=== PATIENT | female | born 1935 | race African-American/Black ===

== ENCOUNTER 2022-03-04 11:18 | Inpatient (IN) | payer OTHER ==
[~2022-03-04] VITALS: Ht 160 cm; Wt 61.2 kg
--- NOTE | 2022-03-04 11:27 | NUR ---
TO ER BED 11, BIBDAUGHTER C/O INCREASED CONFUSION HX OF DEMENTIA, " I FEEL AWFUL", AAOX3, BREATHING EVEN AND NON LABORED, CHANGED INTO A GOWN, CONNECTED TO MONITOR, DAUGHTER AT BEDSIDE
--- NOTE | 2022-03-04 11:47 | NUR ---
COVID SWAB DONE AND SENT TO LAB
--- NOTE | 2022-03-04 11:50 | NUR ---
RECIVED PT 86 YRS FEMALE ACCOMPANY BY RAAD FOR genralized weekness and and more confused and elopment and walking out
--- NOTE | 2022-03-04 11:57 | NUR ---
SEEN BY DR. ESTRADA PT UNABLE TO VODE AT THIS TIME
--- NOTE | 2022-03-04 12:10 | NUR ---
MOVE SHEET SUBMITTED.
[2022-03-04 12:21] LABS: BASOPHILS % (AUTO) 0.4 % (0.0-2.0); HEMATOCRIT 40 % (33-45); LYMPHOCYTES # (AUTO) 2.8 K/uL (0.8-4.8); LYMPHOCYTES % (AUTO) 33.3 % (20.0-44.0); MEAN CORPUSCULAR HGB CONC 33 g/dl (31.0-36.0); MEAN CORPUSCULAR VOLUME 93 fL (82-100); MONOCYTES # (AUTO) 0.7 K/uL (0.1-1.30); NEUTROPHILS # (AUTO) 4.8 K/uL (1.8-8.9); NEUTROPHILS % (AUTO) 57.3 % (43.0-81.0); PLATELET COUNT (AUTO) 227 K/uL (150-450); RED BLOOD CELL COUNT(AUTO) 4.25 MIL/uL (4.0-5.2); WHITE BLOOD COUNT (AUTO) 8.4 K/uL (4.3-11.0)
--- NOTE | 2022-03-04 12:34 | NUR ---
STILL UNABLE TO PROVIDE URINE AT THIS TIME, MD AWARE, CUP OF WATER GIVEN PER MD
[2022-03-04 13:03] LABS: CALCIUM, SERUM 8.8 mg/dL (8.5-10.1); CARBON DIOXIDE 27 mmol/L (21-32); CHLORIDE 104 mmol/L (98-107); GLUCOSE 81 mg/dL (74-106); POTASSIUM 3.9 mmol/L (3.5-5.1); SODIUM SERUM 140 mmol/L (136-145); UREA NITROGEN, BLOOD 12 mg/dL (7-18)
--- NOTE | 2022-03-04 13:11 | NUR ---
RESTING AND COMFORTABLE AT THIS TIME NO PAIN NOTED
[2022-03-04 13:14] LABS: ALANINE AMINOTRANSFERASE 14 U/L (12-78); ALBUMIN 3.7 g/dL (3.4-5.0); ALCOHOL, BLOOD < 3 mg/dL (0-0); ALKALINE PHOSPHATASE 114 U/L (46-116); ASPARTATE AMINOTRANSFERASE 32 U/L (15-37); BILIRUBIN,DIRECT 0.1 mg/dL (0.0-0.2); BILIRUBIN,TOTAL 0.4 mg/dL (0.2-1.0); TOTAL PROTEIN, SERUM 7.9 g/dL (6.4-8.2)
--- NOTE | 2022-03-04 13:19 | NUR ---
CRITICAL LAB TROP 196
[2022-03-04 13:53] LABS: THYROID STIMULATING HORMONE 2.166 uIU/mL (0.358-3.74)
--- NOTE | 2022-03-04 14:30 | NUR ---
resting and asleepy at this time no sob looks comfortable doughter at bed side
[2022-03-04] MEDS ORDERED: ACETAMINOPHEN 325 MG TABLET PO PRN (15:00)
[2022-03-04] MEDS ORDERED: Z GUARD REMEDY 4 OZ OINT TP PRN (15:00)
[2022-03-04] MEDS ORDERED: ASPIRIN 81 MG TAB.CHEW PO ONE (15:00)
[2022-03-04] MEDS ORDERED: MAG HYDROX/AL HYDROX/SIMETH 30 ML UDC PO PRN (15:00)
[2022-03-04] MEDS ORDERED: LORAZEPAM 1 MG TABLET PO PRN (15:00)
[2022-03-04] MEDS ORDERED: ONDANSETRON HCL/PF 4 MG/2 ML VIAL IVP PRN (15:00)
--- NOTE | 2022-03-04 15:04 | NUR ---
GOT BED 311-1 ROSEANNE
[2022-03-04 15:05] LABS: SERUM AMMONIA 15 umol/L (11-32)
[2022-03-04] MEDS ORDERED: ASPIRIN 81 MG TAB.CHEW ONE (15:30)
--- NOTE | 2022-03-04 15:30 | NUR ---
[facility] SWABE PT DONE
--- NOTE | 2022-03-04 15:52 | NUR ---
HAND OFF TO ROSEANNE POLANCO TO ROOM 311-1 STABLE VS AND CONDITION AWAKE AND ALERT
--- NOTE | 2022-03-04 16:10 | NUR ---
CYLINDRICAL MIXER ADMITTING NOTES RECEIVED ADMISSION FROM EMERGENCY ROOM. PATIENT A/O X1, CONFUSED. VS WNL. NO COMPLAINS OF PAIN. CURRENTLY ON ROOM AIR SATURATING WELL; NO SOB OF DIFFICULTY BREATHING. SAFETY PRECAUTIONS IN PLACE; BED IN LOW POSITION AND LOCKED, RAILS UP X2, CALL LIGHT WITHIN REACH. WILL CONTINUE TO MONITOR PATIENT.
[2022-03-04 16:24] LABS: BILIRUBIN,URINE NEGATIVE (NEGATIVE); COLOR,URINE YELLOW (YELLOW); LEUKOCYTE ESTERASE ,URINE NEGATIVE (NEGATIVE); NITRITE, URINE NEGATIVE (NEGATIVE); PROTEIN,URINE NEGATIVE (NEGATIVE); UGLUCOSE NEGATIVE (NEGATIVE); UROBILINOGEN,URINE 0.2 EU/dL (0.2)
--- NOTE | 2022-03-04 18:54 | NUR ---
SVP DIGITAL AD SALES CLOSING NOTES PATIENT IN BED, AWAKE, A/O X1 (SELF), CONFUSED. PATIENT IS ON ROOM AIR SATURATING WELL; NO SOB DURING THE SHIFT. TELE MONITOR READS SR. NO COMPLAINS OF PAIN. RAC IV ACCESS 20 G SALINE LOCKED PRESENT AND INTACT. SAFETY MEASURES IN PLACE: BED LOCKED AND IN LOWEST POSITION, CALL LIGHT WITHIN REACH, SIDE RAILS UP. WILL ENDORSE TO SAP BW BI DEVELOPER NURSE FOR DANTE.
[2022-03-04 20:00] VITALS: BP_SYST 132; BP_SYST 154; BP_DIAS 56; BP_DIAS 74
[2022-03-04] MEDS ORDERED: MAGNESIUM HYDROXIDE 30 ML UDC PO PRN (22:00)
[2022-03-05] VITALS: BP 150/72
[2022-03-05 04:00] VITALS: BP 151/74
[2022-03-05 06:38] LABS: BASOPHILS % (AUTO) 0.3 % (0.0-2.0); EOSINOPHILS % (AUTO) 2.4 % (0.0-6.0); HEMATOCRIT 35 % (33-45); HEMOGLOBIN 11.6 g/dL (11.5-14.8); LYMPHOCYTES # (AUTO) 2.2 K/uL (0.8-4.8); LYMPHOCYTES % (AUTO) 36.5 % (20.0-44.0); MEAN CORPUSCULAR HGB CONC 33 g/dl (31.0-36.0); MEAN CORPUSCULAR VOLUME 93 fL (82-100); MONOCYTES # (AUTO) 0.5 K/uL (0.1-1.30); MONOCYTES % (AUTO) 8.2 % (2.0-12.0); NEUTROPHILS # (AUTO) 3.2 K/uL (1.8-8.9); NEUTROPHILS % (AUTO) 52.6 % (43.0-81.0); PLATELET COUNT (AUTO) 188 K/uL (150-450); RED BLOOD CELL COUNT(AUTO) 3.79 MIL/uL (4.0-5.2)
--- NOTE | 2022-03-05 07:10 | NUR ---
RN NOTE PT SLEPT WELL DURING THE NIGHT. NO C/O PAIN/DISCOMFORT. ABLE TO AMBULATE TO BR WITH SUPERVISION PROVIDED. NO BEHAVIORAL ISSUES NOTED DURING THE NIGHT. ALL NEEDS ATTENDED TO. SAFETY MEASURES MAINTAINED. ENDORSED TO NEXT SHIFT NURSE.
--- NOTE | 2022-03-05 07:50 | NUR ---
HEMODIALYSIS LAB TECHNICIAN OPENING NOTES PATIENT IN BED, ASLEEP. PATIENT IS ON ROOM AIR SATURATING WELL; BREATHING EVEN AND UNLABORED, NO SOB NOTED AT THIS TIME. NO S/S OF PAIN SUCH FACIAL GRIMACING, MOANING OR GUARDING NOTED. TELE MONITOR READS SB 53. NO COMPLAINS OF PAIN. RAC IV ACCESS 20 G SALINE LOCKED PRESENT AND INTACT. SAFETY MEASURES IN PLACE: BED LOCKED AND IN LOWEST POSITION, CALL LIGHT WITHIN REACH, SIDE RAILS UP. WILL CONTINUE TO MONITOR PATIENT.
[2022-03-05 07:56] LABS: CALCIUM, SERUM 8.5 mg/dL (8.5-10.1); CARBON DIOXIDE 26 mmol/L (21-32); CHLORIDE 106 mmol/L (98-107); CREATININE 0.9 mg/dL (0.6-1.3); GLUCOSE 96 mg/dL (74-106); PHOSPHORUS 3.7 mg/dL (2.5-4.9); POTASSIUM 3.9 mmol/L (3.5-5.1); SODIUM SERUM 142 mmol/L (136-145); UREA NITROGEN, BLOOD 12 mg/dL (7-18)
[2022-03-05 08:00] VITALS: BP 147/61
[2022-03-05] MEDS ORDERED: MEMA28CA5 PO (08:22)
[2022-03-05 16:00] VITALS: BP 131/55
[2022-03-05] MEDS: MEMANTINE HCL 5 MG TABLET PO SCH (16:43)
[2022-03-05] MEDS ORDERED: Medication Not On Formulary EA (Memantine HCl (Memantine HCl ER) 28 MG) PO SCH (18:00)
--- NOTE | 2022-03-05 18:41 | NUR ---
COMPILATION CLERK CLOSING NOTES PATIENT REMAINS IN BED, AWAKE, A/O X2 WITH FAMILY AT THE BEDSIDE. PATIENT IS ON ROOM AIR SATURATING WELL; BREATHING EVEN AND UNLABORED, NO SOB NOTED DURING THE DAY. NO COMPLAINS OF PAIN. TELE MONITOR READS SB-SR. RAC IV ACCESS 20 G SALINE LOCKED PRESENT AND INTACT. ALL NEEDS ATTENDED DURING THE DAY. SAFETY MEASURES IN PLACE: BED LOCKED AND IN LOWEST POSITION, CALL LIGHT WITHIN REACH, SIDE RAILS UP. WILL ENDORSE TO ROCK BREAKER NURSE FOR DANTE.
--- NOTE | 2022-03-05 19:37 | NUR ---
SENIOR RELATIONSHIP MANAGER OPENING NOTES PATIENT RECEIVED AWAKE, RESTING IN BED COMFORTABLY; WITH DAUGHTER AT BEDSIDE; A/OX2, BREATHING EVEN AND UNLABORED; NO SOB NOTED, NO DISTRESS NOTED; PATIENT DENIES PAIN; PATIENT TOLERATING ROOM AIR WELL; TELE MONITOR READS SINUS ANGEL - SINUS RHYTHM; R AC #20G S/L PRESENT AND INTACT; DAUGHTER REMINDED STAFF NO B/P TO BE TAKEN ON LEFT ARM; WILL INFORM CHARGE NURSE; SAFETY PRECAUTIONS INITIATED; BED LOCKED IN LOW POSITION; SIDE RAILSX2; CALL LIGHT WITHIN REACH, WILL CONT TO MONITOR AND CONT PLAN OF CARE
--- NOTE | 2022-03-05 20:10 | NUR ---
PROFESSOR OF KINESIOLOGY NOTES PATIENT PULLED OUT IV WHILE AMBULATING TO RESTROOM; DAUGHTER AT BEDSIDE AND WITNESSED. PER DAUGHTER, IF POSSIBLE TO HAVE NO FOR PATIENT IF SUNDOWNING, OR IF NEED IV ACCESS TO WRAP WITH KERLIX. CHARGE NURSE MADE AWARE; WILL CONT TO MONITOR
[2022-03-05 20:30] VITALS: BP 157/76
[2022-03-05] MEDS: QUETIAPINE FUMARATE 25 MG TABLET PO SCH (21:18)
--- NOTE | 2022-03-05 22:00 | NUR ---
KNITTER HELPER NOTES PATIENT REFUSING TO TAKE ORDERED MEDICATION, "HOW DO I KNOW THIS WILL NOT HARM ME?" PATIENT REPEATEDLY STATED SHE DOES NOT NEED MEDICATION, SHE IS FINE AND WOULD LIKE TO GO HOME, WHY ARE WE NOT LISTENING TO HER. SPOKE WITH PATIENT'S DAUGHTER, DAUGHTER ON SPEAKER PHONE TO RELAY IMPORTANCE OF COMPLIANCE WITH MEDICATION DURING HOSPITALIZATION; PATIENT CALMED DOWN AFTER SPEAKING WITH DAUGHTER AND AGREED TO TAKE MEDICATION; REQUIRES SOME COACHING, PATIENT IS A/OX2. CHARGE NURSE AWARE OF SITUATION, WILL CONT TO MONITOR; SAFETY PRECAUTIONS MAINTAINED, BED ALARM ON AND BED LOCKED IN LOWEST POSITION WITH SIDE RAILSX2.
--- NOTE | 2022-03-06 02:00 | NUR ---
HUMAN RESOURCES BENEFITS MANAGER NOTES PATIENT AWAKE, CONSTANTLY GETTING IN AND OUT OF BED; PATIENT USED WATER PITCHER TO URINATE; PATIENT ASSISTED TO RESTROOM AND BACK TO BED; PATIENT IS RESTLESS, CHARGE NURSE AWARE OF SITUATION
--- NOTE | 2022-03-06 04:38 | NUR ---
SHIPYARD HELPER NOTE PATIENT CONFUSED, QUESTIONING WHY THIS HAPPENED TO HER AND WHY DID THIS HAVE TO HAPPEN; MD LEO MADE AWARE OF PATIENT PULLING OUT IV SITE EARLIER ON SHIFT; WAITED FOR PATIENT TO GET CALM AND SETTLED INTO BED; PATIENT CONSTANTLY STANDING AND GETTING OUT OF BED THROUGHOUT SHIFT TO USE RESTROOM; PER , OKAY FOR NO ACCESS FOR THE MEAN TIME; CHARGE NURSE AWARE; WILL CONT TO MONITOR
[2022-03-06 06:13] VITALS: BP 157/62
[2022-03-06 06:37] LABS: BASOPHILS % (AUTO) 0.3 % (0.0-2.0); EOSINOPHILS % (AUTO) 2.3 % (0.0-6.0); HEMATOCRIT 36 % (33-45); LYMPHOCYTES # (AUTO) 3.3 K/uL (0.8-4.8); LYMPHOCYTES % (AUTO) 44.5 % (20.0-44.0); MEAN CORPUSCULAR HGB CONC 33 g/dl (31.0-36.0); MEAN CORPUSCULAR VOLUME 94 fL (82-100); MONOCYTES # (AUTO) 0.6 K/uL (0.1-1.30); MONOCYTES % (AUTO) 7.8 % (2.0-12.0); NEUTROPHILS # (AUTO) 3.3 K/uL (1.8-8.9); NEUTROPHILS % (AUTO) 45.1 % (43.0-81.0); PLATELET COUNT (AUTO) 193 K/uL (150-450); RED BLOOD CELL COUNT(AUTO) 3.88 MIL/uL (4.0-5.2); WHITE BLOOD COUNT (AUTO) 7.4 K/uL (4.3-11.0)
--- NOTE | 2022-03-06 06:41 | NUR ---
SPORTS AGENT CLOSING NOTES PATIENT RESTING IN BED COMFORTABLY; A/OX2, BREATHING EVEN AND UNLABORED; NO SOB NOTED, NO DISTRESS NOTED; PATIENT DENIES PAIN; PATIENT TOLERATING ROOM AIR WELL; TELE MONITOR READS SINUS ANGEL - SINUS RHYTHM; NO IV PRESENT AT THIS TIME, PER MD OKAY FOR NO ACCESS DUE TO PATIENT'S MENTAL STATUS; ALL NEEDS RENDERED; SAFETY PRECAUTIONS INITIATED; BED LOCKED IN LOW POSITION; SIDE RAILSX2; CALL LIGHT WITHIN REACH, WILL ENDORSE DANTE TO ONCOMING SHIFT
[2022-03-06 06:56] LABS: CALCIUM, SERUM 9.1 mg/dL (8.5-10.1); CREATININE 0.9 mg/dL (0.6-1.3)
--- NOTE | 2022-03-06 07:10 | NUR ---
HOME APPRAISER OPENING NOTES RECEIVED PATIENT IN BED, SLEEPING. NO ACUTE SIGNS OF DISTRESS PATIENT IS A/O X 2. NO IV ACCESS. ON ROOM AIR WITH NO S/S OF SOB. TELE MONITOR READS SINUS ANGEL 49 BPM. NO C/O OF CARDIAC DISTRESS NOTED. SAFETY MEASURES IN PLACE: BED LOCKED AND IN LOWEST POSITION, CALL LIGHT WITHIN REACH, SIDE RAILS UP X2. WILL CONTINUE TO MONITOR PATIENT.
[2022-03-06 08:00] VITALS: BP 154/64
[2022-03-06] MEDS: MEMANTINE HCL 5 MG TABLET PO SCH ×2 (09:59→17:16)
--- NOTE | 2022-03-06 10:14 | NUR ---
RN NOTES PATIENT WOKE UP AND ATTEMPTED TO AMBULATE WITHOUT ASSISTANCE. PATIENT WAS ASSISTED BACK TO BED AND GIVEN BREAKFAST. WILL CONTINUE TO MONITOR PATIENT.
[2022-03-06 12:00] VITALS: BP 126/65
[2022-03-06] MEDS: ASPIRIN EC 81 MG TABLET.DR PO SCH (15:13)
[2022-03-06] MEDS: ATORVASTATIN 40 MG TABLET PO SCH ×2 (15:13→21:20)
[2022-03-06] MEDS: METOPROLOL TARTRATE 25 MG TABLET PO SCH ×2 (15:13→21:00)
[2022-03-06 16:00] VITALS: BP 143/86
--- NOTE | 2022-03-06 18:39 | NUR ---
SPANISH INTERPRETER CLOSING NOTES PATIENT IN BED, RESTING DAUGHTER AT BEDSIDE. NO ACUTE SIGNS OF DISTRESS PATIENT IS A/O X 2. NO IV ACCESS. STABLE ON ROOM AIR WITH NO S/S OF SOB. TELE MONITOR READS SINUS RHYTHM 72 BPM. NO C/O OF CARDIAC DISTRESS NOTED. ALL DUE MEDS GIVEN. SAFETY MEASURES MAINTAINED: BED LOCKED AND IN LOWEST POSITION, CALL LIGHT WITHIN REACH, SIDE RAILS UP X2. WILL ENDORSE TO NEXT SHIFT FOR DANTE.
[2022-03-06 19:59] VITALS: BP 112/61
[2022-03-06] MEDS: QUETIAPINE FUMARATE 25 MG TABLET PO SCH (21:20)
--- NOTE | 2022-03-06 22:51 | NUR ---
MS/TELE/RN METOPROLOL 25 MG PO DUE AT 2100 WAS NOT GIVEN PER DAUGHTER'S REQUEST (PER DAY RN ENDORSEMENT).
--- NOTE | 2022-03-06 22:53 | NUR ---
MS/TELE/RN AT INITIAL SHIFT ROUNDING, PATIENT WAS IN BED AWAKE, ALERT, ORIENTED X 2, NO C/O PAIN, NO SIGNS OF DISTRESS NOTED, CALL LIGHT IN REACH, FALL PRECAUTIONS PER PROTOCOL IMPLEMENTED, CALL LIGHT IN REACH, WILL MONITOR.
[2022-03-07] VITALS (8 sets, daily range): BP systolic 108–156; BP diastolic 56–80
--- NOTE | 2022-03-07 00:14 | NUR ---
MS/TELE/RN PATIENT IS SLEEPING, NO DISTRESS NOTED, CALL LIGHT IN REACH, WILL CONTINUE TO MONITOR.
--- NOTE | 2022-03-07 06:02 | NUR ---
MS/TELE/RN PATIENT IS STILL SLEEPING AT THIS TIME, APPEARS COMFORTABLE, NO SIGNS OF DISTRESS NOTED, CALL LIGHT IN REACH, ALL NEEDS ATTENDED AT THIS TIME, WILL CONTINUE TO MONITOR.
--- NOTE | 2022-03-07 07:30 | NUR ---
HOPS FARMWORKER OPENING NOTES: RECEIVED PATIENT AWAKE. A/O X 2, NO SOB OR CARDIAC DISTRESS NOTED, AFEBRILE AND ON ROOM AIR AND TOLERATING WELL. ON TELE MONITOR WITH CURRENT READING OF SINUS ANGEL WITH BBB @45BPM. NO IV ACCESS AT THIS TIME.KEPT RESTED AND COMFORTABLE. SAFETY PRECAUTIONS MAINTAINED: BED IN LOCKED AND LOWEST POSITION, SIDE RAILS UP X 2, CALL LIGHT IN EASY REACH FOR HELP/ASSISTANCE. BED ALARM ON. WILL MONITOR ACCORDINGLY.
[2022-03-07] MEDS: ASPIRIN EC 81 MG TABLET.DR PO SCH (08:41)
[2022-03-07] MEDS: MEMANTINE HCL 5 MG TABLET PO SCH ×2 (08:41→16:14)
[2022-03-07] MEDS: METOPROLOL TARTRATE 25 MG TABLET PO SCH ×2 (08:41→20:52)
--- NOTE | 2022-03-07 08:42 | NUR ---
RN NOTES: METOPROLOL 25MG/TAB NOT GIVEN, REVENUE CYCLE MANAGERDISPLAY AND BANNER DESIGNER ENDORSED PER DAUGHTER'S REQUEST DONT GIVE METOPROLOL . CURRENT BP: 156/64, PULSE 56
--- NOTE | 2022-03-07 19:21 | NUR ---
TAPPING MACHINE OPERATOR AUTOMATIC CLOSINGNOTES: PATIENT AWAKE. A/O X 2, NO SOB OR CARDIAC DISTRESS NOTED, AFEBRILE AND ON ROOM AIR AND TOLERATING WELL. ON TELE MONITOR WITH CURRENT READING OF SINUS ANGEL WITH BBB @42BPM. NO IV ACCESS AT THIS TIME.KEPT RESTED AND COMFORTABLE. SAFETY PRECAUTIONS MAINTAINED: BED IN LOCKED AND LOWEST POSITION, SIDE RAILS UP X 2, CALL LIGHT IN EASY REACH FOR HELP/ASSISTANCE. BED ALARM ON. WILL MONITOR ACCORDINGLY. ENDORSED TO NEXT SHIFT FOR DANTE.
--- NOTE | 2022-03-07 19:43 | NUR ---
SCHEDULE PLANNING MANAGER OPENING NOTE RECEIVED PATIENT AWAKE. A/O X 2, ON RA TOLERATING WELL. NO SOB, BREATHING EVEN AND UNLABORED. NO DISTRESS OR DISCOMFORT NOTED. AFEBRILE AND ON TELE MONITORING. NO IV ACCESS AT THIS TIME.KEPT RESTED AND COMFORTABLE. SAFETY PRECAUTIONS MAINTAINED: BED IN LOCKED AND LOWEST POSITION, SIDE RAILS UP X 2, CALL LIGHT WITHIN REACH. BED ALARM ON. WILL CONTINUE MONITOR THROUGHOUT THE SHIFT
--- NOTE | 2022-03-07 20:45 | NUR ---
RN NOTE METOPROLOL 25MG/TAB NOT GIVEN, PER DAY SHIFT RN ENDORSED, PT DAUGHTER REQUESTED NOT TO GIVE METOPROLOL. CURRENT BP: 148/72, PULSE 68, 98%.
[2022-03-07] MEDS: ATORVASTATIN 40 MG TABLET PO SCH (21:12)
[2022-03-07] MEDS: QUETIAPINE FUMARATE 25 MG TABLET PO SCH (21:12)
[2022-03-08] VITALS (7 sets, daily range): BP systolic 125–147; BP diastolic 57–80
--- NOTE | 2022-03-08 06:39 | NUR ---
CHILD CARE NURSE CLOSING NOTE PATIENT IN BED RESTING COMFORTABLY. A/O X 2, ON RA TOLERATING WELL. NO SOB NOTED, BREATHING EVEN AND UNLABORED. NO DISTRESS OR DISCOMFORT NOTED. AFEBRILE AND ON TELE MONITORING CURRENTLY READING SB BBB AT 50 BPM. NO IV ACCESS AT THIS TIME. KEPT RESTED AND COMFORTABLE. SAFETY PRECAUTIONS MAINTAINED: ALL DUE MEDS GIVEN, BED IN LOCKED AND LOWEST POSITION, SIDE RAILS UP X 2, CALL LIGHT WITHIN REACH. BED ALARM ON. WILL ENDORSE TO AM SHIFT NURSE.
[2022-03-08 07:13] LABS: BASOPHILS % (AUTO) 0.2 % (0.0-2.0); EOSINOPHILS % (AUTO) 3.2 % (0.0-6.0); HEMATOCRIT 37 % (33-45); HEMOGLOBIN 12.2 g/dL (11.5-14.8); LYMPHOCYTES # (AUTO) 3.6 K/uL (0.8-4.8); LYMPHOCYTES % (AUTO) 44.8 % (20.0-44.0); MEAN CORPUSCULAR HGB CONC 33 g/dl (31.0-36.0); MEAN CORPUSCULAR VOLUME 93 fL (82-100); MONOCYTES # (AUTO) 0.6 K/uL (0.1-1.30); MONOCYTES % (AUTO) 7.2 % (2.0-12.0); NEUTROPHILS # (AUTO) 3.5 K/uL (1.8-8.9); NEUTROPHILS % (AUTO) 44.6 % (43.0-81.0); PLATELET COUNT (AUTO) 200 K/uL (150-450); RED BLOOD CELL COUNT(AUTO) 3.97 MIL/uL (4.0-5.2); WHITE BLOOD COUNT (AUTO) 7.9 K/uL (4.3-11.0)
--- NOTE | 2022-03-08 07:33 | NUR ---
RN NOTE RECEIVED REPORT FROM L[facility]LEY IN REGARDS TO LAB CRITICAL VALUE OF TROPONIN 60, WILL ENDORSE TO AM SHIFT NURSE.
[2022-03-08 07:39] LABS: CALCIUM, SERUM 9.2 mg/dL (8.5-10.1); CARBON DIOXIDE 30 mmol/L (21-32); CHLORIDE 104 mmol/L (98-107); CREATININE 1.1 mg/dL (0.6-1.3); GLUCOSE 106 mg/dL (74-106); POTASSIUM 4.5 mmol/L (3.5-5.1); SODIUM SERUM 141 mmol/L (136-145); UREA NITROGEN, BLOOD 16 mg/dL (7-18)
--- NOTE | 2022-03-08 07:52 | NUR ---
COMMISSIONS MANAGER OPENING NOTES RECEIVED PATIENT IN BED AWAKE. A/O X 2, ON RA TOLERATING WELL. NO SOB NOTED; BREATHING EVEN AND UNLABORED. NO DISTRESS OR DISCOMFORT. ON TELE MONITORING WITH CURRENT READING OF SR 61 BPM. NO IV ACCESS AT THIS TIME. SAFETY PRECAUTIONS MAINTAINED: BED IN LOCKED AND LOWEST POSITION, SIDE RAILS UP X 2, CALL LIGHT WITHIN REACH. BED ALARM ON. WILL CONTINUE TO MONITOR PATIENT.
[2022-03-08] MEDS: METOPROLOL TARTRATE 25 MG TABLET PO SCH ×2 (08:11→21:00)
[2022-03-08] MEDS: MEMANTINE HCL 5 MG TABLET PO SCH ×2 (08:15→16:02)
[2022-03-08] MEDS: ASPIRIN EC 81 MG TABLET.DR PO SCH (08:15)
[2022-03-08] MEDS ORDERED: METO25TA20 PO (08:37)
[2022-03-08] MEDS ORDERED: Quetiapine Fumarate PO (08:37)
--- NOTE | 2022-03-08 18:44 | NUR ---
SUBSTITUTE NURSE CLOSING NOTES PATIENT REMAINS IN BED AWAKE, RESTING. A/O X 2, ON RA TOLERATING WELL. NO SOB NOTED; BREATHING EVEN AND UNLABORED DURING SHIFT. NO DISTRESS OR DISCOMFORT DURING THE DAY. ON TELE MONITORING WITH CURRENT READING OF SR. NO IV ACCESS. ALL NEEDS ATTENDED DURING THE DAY. SAFETY PRECAUTIONS MAINTAINED: BED IN LOCKED AND LOWEST POSITION, SIDE RAILS UP X 2, CALL LIGHT WITHIN REACH. BED ALARM ON. WILL ENDORSE TO INSTANTIZER OPERATOR NURSE FOR DANTE.
--- NOTE | 2022-03-08 19:16 | NUR ---
PENCILS WASHER OPENING NOTE RECEIVED PT AWAKE IN BED. A/O X2 AND ABLE TO MAKE NEEDS KNOWN. PT STABLE ON ROOM AIR. NO SOB OR S/S OF RESPIRATORY DISTRESS NOTED. BREATHING EVEN AND UNLABORED. ON EXTERNAL JUKEBOX COIN COLLECTOR READING SR. SAFETY PRECAUTIONS IN PLACE. BED IN LOWEST LOCKED POSITION, HOB ELEVATED, SIDE RAILS UP X2, AND CALL LIGHT AND TABLE WITHIN REACH. ALL NEEDS MET AT THIS TIME.
[2022-03-08] MEDS: QUETIAPINE FUMARATE 25 MG TABLET PO SCH (21:12)
[2022-03-08] MEDS: ATORVASTATIN 40 MG TABLET PO SCH (21:12)
[2022-03-09] VITALS: BP 139/65
[2022-03-09 04:00] VITALS: BP 139/65
[2022-03-09 04:24] VITALS: BP 183/77
--- NOTE | 2022-03-09 06:42 | NUR ---
FLAT GRINDER OPERATOR CLOSING NOTE PT AWAKE IN BED. A/O X2 AND ABLE TO MAKE NEEDS KNOWN. PT STABLE ON ROOM AIR. NO SOB OR S/S OF RESPIRATORY DISTRESS NOTED. BREATHING EVEN AND UNLABORED. ON EXTERNAL GEOTECHNICIAL PROPERTIES TECHNICIAN READING SB 55 BPM. ALL DUE MEDS GIVEN ORDERED. SAFETY PRECAUTIONS IN PLACE AT ALL TIMES. BED IN LOWEST LOCKED POSITION, HOB ELEVATED, SIDE RAILS UP X2, AND CALL LIGHT AND TABLE WITHIN REACH. ALL NEEDS MET AT THIS TIME AND WILL ENDORSE TO ONCOMING NURSE FOR DANTE.
--- NOTE | 2022-03-09 07:35 | NUR ---
CHICK SEXER OPENING NOTES RECEIVED PATIENT IN BED AWAKE. A/O X2, ABLE TO MAKE NEEDS KNOWN. PATIENT STABLE ON ROOM AIR. BREATHING EVEN AND UNLABORED WITH NO DISTRESS NOTED. DENIES PAIN AT THIS TIME. ON EXTERNAL R DEVELOPER READING SR 61 BPM AT THIS TIME. SAFETY PRECAUTIONS IN PLACE AT ALL TIMES. BED IN LOWEST LOCKED POSITION, HOB ELEVATED, SIDE RAILS UP X2, CALL LIGHT AND TABLE WITHIN REACH. WILL CONTINUE TO MONITOR
[2022-03-09 08:00] VITALS: BP 133/68
--- NOTE | 2022-03-09 08:30 | NUR ---
RN NOTES DID NOT ADMIN METOPROLOL PER DAUGHTER REQUEST. PATIENT DISPLAYING NO S/SX OF DISCOMFORT AT THIS TIME.
[2022-03-09] MEDS: MEMANTINE HCL 5 MG TABLET PO SCH ×2 (09:00→17:08)
[2022-03-09] MEDS: METOPROLOL TARTRATE 25 MG TABLET PO SCH ×2 (09:00→21:00)
[2022-03-09] MEDS: ASPIRIN EC 81 MG TABLET.DR PO SCH (09:02)
[2022-03-09 16:00] VITALS: BP 143/76
--- NOTE | 2022-03-09 18:52 | NUR ---
RN CLOSING NOTES PATIENT IN BED AWAKE AT THIS TIME. A/O X1 WITH INCREASED CONFUSION DURING EVENING. ON RA WITH NO S/SX OF RESP DISTRESS NOTED. SAFETY PRECAUTIONS IN PLACE WITH REORIENTATION NEEDED THROUGH OUT DAY. AWAITING PLACEMENT FOR DISCHARGE. WILL ENDORSE TO DRUPAL PROGRAMMER NURSE FOR DANTE.
--- NOTE | 2022-03-09 19:35 | NUR ---
RN NOTES RECEIVED PATIENT AWAKE ON BED, A/O1-2, NO IV ACCESS, MD IS AWARE, SB ON TELE MONITOR HR-58, DENIES PAIN, NO SOB, CALL LIGHT WITHIN REACH, SIDERAILSUPX2, WILL CONTINUE TO MONITOR
--- NOTE | 2022-03-09 21:00 | NUR ---
RN NOTES METOPROLOL 25MG PO WAS NOT GIVEN PER DAUGHTER'S REQUEST.. [facility]
[2022-03-09] MEDS: ATORVASTATIN 40 MG TABLET PO SCH (21:27)
[2022-03-09] MEDS: QUETIAPINE FUMARATE 25 MG TABLET PO SCH (21:27)
[2022-03-10] VITALS: BP 133/64
[2022-03-10 04:00] VITALS: BP 146/70
--- NOTE | 2022-03-10 06:42 | NUR ---
RN NOTES SLEEPING BUT AROUSABLE, DENIES PAIN, NO SOB, MORNING CARE RENDERED, CALL LIGHT WITHIN REACH, ASAAILSUPX2, PT. NEEDS ATTENDED
--- NOTE | 2022-03-10 08:03 | NUR ---
RN OPENING NOTE PATIENT RECEIVED IN BED, AO X 1-2, ABLE TO RESPONDS ALL STIMULI. IN NO ACUTE DISTRESS NOTED. RESPIRATORY EVEN AND UNLABORED ON ROOM AIR. SKIN IS WARM TO TOUCH, KEEP CLEAN/DRY. KEPT ELEVATED HOB FOR ENSURE AIRWAY AND ASPIRATION PRECAUTION, ALSO LOWEST POSITION OF THE BED, S/R UP X 3, BED ALARM IS ON AT ALL THE TIMES. ALL SAFETY PRECAUTION APPLIED. CALL LIGHT WITHIN REACH, WILL CONTINUE TO MONITOR.
[2022-03-10] MEDS: METOPROLOL TARTRATE 25 MG TABLET PO SCH ×2 (09:00→21:00)
[2022-03-10] MEDS: ASPIRIN EC 81 MG TABLET.DR PO SCH (09:28)
[2022-03-10] MEDS: MEMANTINE HCL 5 MG TABLET PO SCH ×2 (09:29→18:05)
--- NOTE | 2022-03-10 09:29 | NUR ---
PATIENT HR IS 48, HELD METOPROLOL.
--- NOTE | 2022-03-10 18:55 | NUR ---
RN CLOSING PATIENT IN BED, RESTING COMFORTABLY, HER DTR AT BED SIDE. IN NO ACUTE DISTRESS OBSERVED. SKIN IS WARM TO TOUCH KEEP CLEAN/DRY. RESPIRATORY EVEN AND UNLABORED ON ROOM AIR. KEPT ELEVATED HOB FOR ASPIRATION PRECAUTION AND ENSURE AIRWAY. ALSO LOWEST POSITION OF THE BED FOR SAFETY. BED ALARM IS ON AT ALL THE TIME. ALL SAFETY PRECAUTION APPLIED. WILL ENDORSE TO RUBBER GOODS SUPERVISOR.
--- NOTE | 2022-03-10 19:38 | NUR ---
MINIATURE SET CONSTRUCTOR OPENING NOTES PATIENT RECEIVED RESTING IN BED COMFORTABLY; A/OX1-2, ABLE TO MAKE NEEDS KNOWN; PATIENT'S DAUGHTER AT BEDSIDE; PATIENT TOLERATING ROOM AIR WELL, BREATHING EVEN AND UNLABORED; NO SOB NOTED; NO DISTRESS NOTED, PATIENT DENIES PAIN; NO IV ACCESS NOTED, CHARGE NURSE. MD AND DAUGHTER AWARE; BED LOCKED IN LOW POSITION; SIDE RAILSX2; CALL LIGHT WITHIN REACH, BED ALARM ON; WILL CONT PLAN OF CARE
[2022-03-10 20:00] VITALS: BP 126/68
[2022-03-10 20:29] VITALS: BP 126/68
--- NOTE | 2022-03-10 21:01 | NUR ---
CASH CONTROL SPECIALIST NOTES PER DAUGHTER REQUEST, HOLD LOPRESSOR; CHARGE NURSE AWARE
[2022-03-10] MEDS: QUETIAPINE FUMARATE 25 MG TABLET PO SCH (21:43)
[2022-03-10] MEDS: ATORVASTATIN 40 MG TABLET PO SCH (21:43)
[2022-03-11 00:12] VITALS: BP 129/70
[2022-03-11 04:12] VITALS: BP 143/63
--- NOTE | 2022-03-11 06:53 | NUR ---
POLICE RECORDS CLERK CLOSING NOTES PATIENT RESTING IN BED COMFORTABLY; A/OX1-2, ABLE TO MAKE NEEDS KNOWN; PATIENT'S DAUGHTER AT BEDSIDE; PATIENT TOLERATING ROOM AIR WELL, BREATHING EVEN AND UNLABORED; NO SOB NOTED; NO DISTRESS NOTED, PATIENT DENIES PAIN; NO IV ACCESS NOTED, TELE MONITOR READS SINUS ANGEL - SINUS RHTYHM 57BPM - 65BPM; CHARGE NURSE. MD AND DAUGHTER AWARE; ALL NEEDS RENDERED; BED LOCKED IN LOW POSITION; SIDE RAILSX2; CALL LIGHT WITHIN REACH, BED ALARM ON; WILL ENDORSE DANTE TO ONCOMING SHIFT
--- NOTE | 2022-03-11 08:07 | NUR ---
TOWEL DISTRIBUTOR OPENING NOTE Patient in bed, asleep. A/O x 1-2. On room air, breathing evenly and unlabored. No SOB or s/s of distress noted. No IV access, patient refused as per manager shift nurse. MD aware. On tele monitoring showing sinus bradycardia, Hr on the 50's. Safety precautions in place: bed in low, locked position; siderails up x 2; call light within reach. Will continue to monitor.
[2022-03-11] MEDS: ASPIRIN EC 81 MG TABLET.DR PO SCH (08:25)
[2022-03-11] MEDS: MEMANTINE HCL 5 MG TABLET PO SCH ×2 (08:25→17:07)
[2022-03-11] MEDS: METOPROLOL TARTRATE 25 MG TABLET PO SCH (08:26)
[2022-03-11 08:37] VITALS: BP 150/64
--- NOTE | 2022-03-11 09:00 | NUR ---
RN NOTE Metoprolol scheduled for 0900 held, patient's HR is 45. Dr. Velez notified.
[2022-03-11] MEDS ORDERED: AMLO-212 PO (10:31)
[2022-03-11] MEDS: AMLODIPINE BESYLATE 5 MG TABLET PO SCH (10:42)
[2022-03-11 12:28] VITALS: BP 107/60
[2022-03-11 16:38] VITALS: BP 147/71
--- NOTE | 2022-03-11 19:20 | NUR ---
RN NOTE PT RESTING IN BED, EASILY AROUSABLE TO STIMULI, A/OX1-2. REORIENTATION PROVIDED. PT DENIES ANY PAIN. RESPIRATIONS EVEN/UNLABORED. PT QUIET AND COOPERATIVE. AMBULATES WITH FWW. NO ACUTE DISTRESS. SAFETY MEASURES IN PLACE, BED IN LOWEST LOCKED POSITION, S/R UPX2, CALL LIGHT WITHIN REACH. WILL CONT TO MONITOR.
[2022-03-11 20:00] VITALS: BP 149/63
--- NOTE | 2022-03-11 20:03 | NUR ---
WALLPAPER CLEANER CLOSING NOTE Patient in bed, resting. A/O x 1-2. On room air, breathing evenly and unlabored. No SOB or s/s of distress noted. No IV access, MD aware. On tele monitoring showing sinus bradycardia, Hr on the 50's. All needs attended to. Due meds given. Safety precautions in place: bed in low, locked position; siderails up x 2; call light within reach. Will endorse to night cleaner nurse for DANTE.
[2022-03-11] MEDS: QUETIAPINE FUMARATE 25 MG TABLET PO SCH (21:58)
[2022-03-11] MEDS: ATORVASTATIN 40 MG TABLET PO SCH (21:58)
[2022-03-12] VITALS: BP 145/73
[2022-03-12 04:00] VITALS: BP 138/79
--- NOTE | 2022-03-12 06:54 | NUR ---
RN NOTE PT RESTING IN BED, EASILY AROUSABLE TO STIMULI. DENIES ANY PAIN/DISCOMFORT. PT SLEPT WELL THROUGHOUT THE NIGHT. NO ACUTE EVENTS. TELE MONITOR READING SB, HR 59. PT STABLE. SAFETY MEASURES MAINTAINED, BED IN LOWEST LOCKED POSITION, S/R UPX2, CALL LIGHT WITHIN REACH.
--- NOTE | 2022-03-12 07:58 | NUR ---
PRODUCTION LINE OPENING NOTE Patient in bed, asleep. A/O x 2. On room air, breathing evenly and unlabored. No SOB or s/s of distress noted. No IV access. MD aware. On tele monitoring showing sinus bradycardia, HR on the 50's. Safety precautions in place: bed in low, locked position; siderails up x 2; call light within reach. Will continue to monitor.
[2022-03-12] MEDS: ASPIRIN EC 81 MG TABLET.DR PO SCH (08:35)
[2022-03-12] MEDS: MEMANTINE HCL 5 MG TABLET PO SCH ×2 (08:35→16:47)
[2022-03-12] MEDS: AMLODIPINE BESYLATE 5 MG TABLET PO SCH (08:35)
--- NOTE | 2022-03-12 19:10 | NUR ---
MS/RN NOTE PT AWAKE IN BED, WATCHING TV. A/OX1-2, VERBALLY RESPONSIVE. DENIES ANY PAIN. RESPIRATIONS EVEN/UNLABORED. PT QUIET AND COOPERATIVE. ABLE TO AMBULATE WITH FWW. PT IN NO DISTRESS. SAFETY MEASURES IN PLACE, BED IN LOWEST LOCKED POSITION, S/R UPX2, CALL LIGHT WITHIN REACH. WILL CONT TO MONITOR.
--- NOTE | 2022-03-12 19:27 | NUR ---
MS RN CLOSING NOTE Patient in bed, resting comfortably. A/O x 2, able to make needs known. Stable on room air, breathing evenly and unlabored. No SOB or s/s of distress noted. No IV access. MD aware. Due meds given. All needs attended to. Safety precautions in place: bed in low, locked position; siderails up x 2; call light within reach. Will endorse to second shift supervisor nurse for DANTE.
[2022-03-12 20:00] VITALS: BP 130/60
[2022-03-12] MEDS: ATORVASTATIN 40 MG TABLET PO SCH (21:33)
[2022-03-12] MEDS: QUETIAPINE FUMARATE 25 MG TABLET PO SCH (21:34)
--- NOTE | 2022-03-13 06:47 | NUR ---
RN NOTE PT SLEPT WELL THROUGHOUT THE NIGHT. NO ACUTE EVENTS. V/S STABLE. SAFETY MEASURES MAINTAINED, BED IN LOWEST LOCKED POSITION, S/R UPX2, CALL LIGHT WITHIN REACH.
--- NOTE | 2022-03-13 07:28 | NUR ---
MS RN OPENING NOTE RECEIVED PT ASLEEP IN BED, EASILY AROUSED. A/O X1-2. REORIENTED PT ASS NEEDED. ON RA, TOLERATING WELL. BREATHING UNLABORED WITH NO SIGN OF RESPIRATORY DISTRESS. PT HAS NO IV ACCESS NOTED. SAFETY MEASURES IN PLACE: BED IN LOWEST AND LOCKED POSITION, SIDE RAILS UP X3, BED ALARM ON AND CALL LIGHT WITHIN REACH. WILL CONTINUE TO MONITOR PT.
[2022-03-13 08:59] VITALS: BP 136/72
[2022-03-13] MEDS: AMLODIPINE BESYLATE 5 MG TABLET PO SCH (08:59)
[2022-03-13] MEDS: ASPIRIN EC 81 MG TABLET.DR PO SCH (08:59)
[2022-03-13] MEDS: MEMANTINE HCL 5 MG TABLET PO SCH (08:59)
--- NOTE | 2022-03-13 15:53 | NUR ---
BANK RECONCILIATOR NOTES PT DISCHARGED TO [facility] IN STABLE CONDITION. PT ALERT AND ORIENTED X 2, REORIENTED PT NEEDED. ON RA, TOLERATING WELL WITH SPO2 AT 96%. NO SOB NOTED. BREATHING EVEN AND UNLABORED. NOT IN ANY SIGN OF RESPIRATORY DISTRESS. V/S TAKEN, STABLE, AND RECORDED. SKIN IS INTACT WITH NO SKIN IMPAIRMENTS NOTED. ALL BELONGINGS ACCOUNTED FOR. ALL DISCHARGED INSTRUCTIONS AND HEALTH TEACHINGS PROVIDED TO PT AND PT VERBALIZED UNDERSTANDING. PT HAS NO IV ACCESS. CALLED [facility] AND GAVE REPORT TO SHERRI FLORES EARLIER. PT LEFT THE UNIT AT 1547 VIA GURNEY PICKED UP BY 2 [facility] [employer] FROM [facility]. MD AND CHARGED NURSE AWARE OF DISCHARGE.
== END 2022-03-13 15:45 | DRG 281 ==
LOC: ER 11:23 → TELE 15:10 → MED 03-12 11:56
PROVIDERS: ADMIT Internal Medicine; ATTEND Internal Medicine
DX: I50.33 Acute on chronic diastolic (congestive) heart failure (principal); I21.A1 Myocardial infarction type 2; F03.91 Unspecified dementia, unspecified severity, with behavioral disturbance; R62.7 Adult failure to thrive; Z68.23 Body mass index [BMI] 23.0-23.9, adult; Z20.822 Contact with and (suspected) exposure to COVID-19; Z85.3 Personal history of malignant neoplasm of breast; Z73.6 Limitation of activities due to disability; R53.1 Weakness; R27.8 Other lack of coordination; Z91.81 History of falling; F32.A Depression, unspecified; F41.9 Anxiety disorder, unspecified; E78.5 Hyperlipidemia, unspecified; F29 Unspecified psychosis not due to a substance or known physiological condition
CPT/HCPCS: 36415; 70450-TC; 71045-TC; 80048-TC; 80076-TC; 82140-TC; 83605-TC; 83735-TC; 84100-TC; 84443-TC; 84484-TC; 85025-TC; 85730-TC; 87040-TC; 87081-TC; 87086-TC; 93307-TC; 97116-TC; 97530-TC; 97535-TC; A6403; C9803; G0378; G0480